=== PATIENT | female | born 2005 | race Two or more races ===

== ENCOUNTER 2024-08-27 22:48 | Emergency (ER) | payer MEDICAID, OTHER ==
[~2024-08-27] VITALS: Ht 160 cm; Wt 52.9 kg
[2024-08-27 23:25] VITALS: BP 130/74; PULSE 98; RESP 18; TEMP 97.9; O2SAT 98
== END 2024-08-28 01:59 | disposition home or self-care (01) ==
LOC: ER 22:48
DX: R22.0 Localized swelling, mass and lump, head (principal); R20.2 Paresthesia of skin
CPT/HCPCS: 70450